=== PATIENT | female | born 1980 | race Caucasian/White ===

== ENCOUNTER 2018-03-03 18:45 | Emergency (ER) | payer SELFPAY ==
[~2018-03-03] VITALS: Ht 163.8 cm; Wt 89.9 kg
[2018-03-03 19:02] VITALS: BP 147/95
== END 2018-03-03 20:48 | disposition home or self-care (01) ==
LOC: ED 20:45
DX: S46.911A Strain of unspecified muscle, fascia and tendon at shoulder and upper arm level, right arm, initial encounter (principal); S00.11XA Contusion of right eyelid and periocular area, initial encounter; W01.0XXA Fall on same level from slipping, tripping and stumbling without subsequent striking against object, initial encounter; Y93.89 Activity, other specified; Y92.009 Unspecified place in unspecified non-institutional (private) residence as the place of occurrence of the external cause; Y99.8 Other external cause status
CPT/HCPCS: 70486; 99284